=== PATIENT | female | born 1960 | race Caucasian/White ===

== ENCOUNTER → 2016-10-12 | Outpatient (CLI) | payer BC ==
[2016-10-12 08:15] LABS: Albumin 3.7 g/dL (3.4-5.0); Calcium 9.2 mg/dL (8.5-10.1); Potassium 4.1 mmol/L (3.5-5.1)
[2016-10-12 08:18] LABS: Bilirubin, Total 0.2 mg/dL (0.2-1.0); Total Protein 7.6 g/dL (6.4-8.2)
== END | disposition home or self-care (01) ==
LOC: LAB 07:24
DX: E11.65 Type 2 diabetes mellitus with hyperglycemia (principal); K76.0 Fatty (change of) liver, not elsewhere classified; Z90.49 Acquired absence of other specified parts of digestive tract
CPT/HCPCS: 36415; 80053; 80061; 83036

== ENCOUNTER 2018-09-20 03:21 | Inpatient (IN) | payer OTHER, BC | END 2018-09-23 14:18 | disposition home or self-care (01) | LOC: ER 03:21 → TELE 03:22 → TELE-EAST 10:24 | DX: I24.9 Acute ischemic heart disease, unspecified (principal); I10 Essential (primary) hypertension; E11.65 Type 2 diabetes mellitus with hyperglycemia; J45.909 Unspecified asthma, uncomplicated; E66.01 Morbid (severe) obesity due to excess calories ==

== ENCOUNTER 2021-08-18 05:44 | Inpatient (IN) | payer OTHER ==
[~2021-08-18] VITALS: Ht 170.2 cm; Wt 115.2 kg
[~2021-08-18 05:44] MED LIST: GLIP10TA9 PO; LINA5TAB PO; LOSA-39 PO; METF-372 PO; METO-289 PO
[2021-08-18 06:43] LABS: Basophils # (auto) 0.1 10 ^3/uL (0-0.2); Basophils % (auto) 1.3 % (0.0-2.0); Eosinophils # (auto) 0.3 10 ^3/uL (0-0.8); Eosinophils % (auto) 4.8 % (0.0-7.0); Hematocrit 40.4 % (36.0-46.0); Hemoglobin 14.1 g/dL (12.2-16.2); Lymphocytes # (auto) 2.1 10 ^3/uL (0.4-5.4); Lymphocytes % (auto) 33.8 % (10.0-50.0); Mean Corpuscular Hgb Conc. 34.8 g/dL (32.0-36.0); Mean Corpuscular Volume 86.3 fL (80.0-100.0); Monocytes # (auto) 0.5 10 ^3/uL (0-1.3); Monocytes % (auto) 7.9 % (0.0-12.0); Neutrophils # (auto) 3.3 10 ^3/uL (1.6-8.6); Neutrophils % (auto) 52.2 % (37.0-80.0); Nucleated Red Blood Cells % 0.1 %; Red Blood Cells 4.69 10^6/uL (4.0-5.20); Red Cell Distribution Width 13.3 % (11.8-14.3); White Blood Cell 6.3 10^3/uL (4.4-10.8)
[2021-08-18 07:04] LABS: Albumin 3.7 g/dL (3.4-5.0); Potassium 4.2 mmol/L (3.5-5.1)
[2021-08-18 07:07] LABS: BUN/Creatinine Ratio 11.9; Bilirubin, Total 0.4 mg/dL (0.2-1.0); Total Protein 7.5 g/dL (6.4-8.2)
[2021-08-18] MEDS ORDERED: LABETALOL HCL 5 MG/ML 4ML SYRINGE IV ONE (08:45)
[2021-08-18] MEDS ORDERED: MORPHINE SULFATE INJ 2 MG/ml SYRG IV PRN ×2 (11:00)
[2021-08-18] MEDS ORDERED: DEXTROSE (50%) 50ML SYRG IV PRN (11:00)
[2021-08-18] MEDS ORDERED: NITROGLYCERIN 0.4 MG SL TAB SL PRN (11:00)
[2021-08-18] MEDS ORDERED: hydrALAZINE HCL 20 MG/ML VL IV ONE (11:00)
[2021-08-18] MEDS ORDERED: ACETAMINOPHEN 325 MG TAB PO ONE (11:00)
[2021-08-18 11:16] LABS: Cholesterol 250 mg/dL (< 200); HDL Cholesterol 36 mg/dL (40-59); LDL Cholesterol 168 mg/dL (< 100); Triglycerides 311 mg/dL (< 150)
[2021-08-18] MEDS: hydrALAZINE HCL 20 MG/ML VL IV PRN ×3 (11:39→20:11)
[2021-08-18 12:07] LABS: Urine Bacteria NONE SEEN /hpf (None Seen); Urine Blood Negative /uL (Negative); Urine Specific Gravity 1.016 (1.001-1.035); Urine WBC 1 /hpf (0 - 5)
[2021-08-18 12:23] LABS: Alcohol, Urine < 3.0 mg/dL (0-10); Amphetamine Screen, Urine NEGATIVE (NEGATIVE); Barbiturate Scree,Urine NEGATIVE (NEGATIVE); Benzodiazephine Screen, Urine NEGATIVE (NEGATIVE); Cannabinoid Screen, Urine NEGATIVE (NEGATIVE); Cocaine Screen, Urine NEGATIVE (NEGATIVE); Opiate Scree,Urine NEGATIVE (NEGATIVE); Phencyclidine Screen, Urine NEGATIVE (NEGATIVE)
[2021-08-18] MEDS: ACCU-CHEK COMFORT CURVE STRIP VI SCH ×2 (12:28→17:33)
[2021-08-18] MEDS: InsuLIN REG 1unit/0.01ml Soln (100units/ml) SC SCH ×2 (12:40→17:48)
[2021-08-18 18:39] VITALS: BP 174/92
[2021-08-18] MEDS ORDERED: MONT-8 PO (19:21)
[2021-08-18] MEDS ORDERED: SITA100T7 PO (19:21)
[2021-08-18] MEDS ORDERED: CYCL-611 PO (19:21)
[2021-08-18] MEDS ORDERED: HYDR-4798 (19:21)
[2021-08-18] MEDS ORDERED: DULA0.5I SC (19:21)
[2021-08-18] MEDS: ATORVASTATIN 20 MG TAB PO SCH (23:59)
[2021-08-19] MEDS: InsuLIN REG 1unit/0.01ml Soln (100units/ml) SC SCH ×5 (00:04→21:33)
[2021-08-19] MEDS: ACCU-CHEK COMFORT CURVE STRIP VI SCH ×5 (00:05→21:38)
[2021-08-19] MEDS: ACETAMINOPHEN 325 MG TAB PO PRN ×2 (03:43→09:32)
[2021-08-19] MEDS: hydrALAZINE HCL 20 MG/ML VL IV PRN ×2 (04:12→09:37)
[2021-08-19 04:39] LABS: Basophils # (auto) 0.1 10 ^3/uL (0-0.2); Basophils % (auto) 1.5 % (0.0-2.0); Eosinophils # (auto) 0.3 10 ^3/uL (0-0.8); Eosinophils % (auto) 4.5 % (0.0-7.0); Hemoglobin 13.7 g/dL (12.2-16.2); Lymphocytes # (auto) 2.6 10 ^3/uL (0.4-5.4); Lymphocytes % (auto) 40.3 % (10.0-50.0); Mean Corpuscular Hemoglobin 29.5 pg (28.0-32.0); Mean Corpuscular Hgb Conc. 34.2 g/dL (32.0-36.0); Mean Corpuscular Volume 86.2 fL (80.0-100.0); Monocytes # (auto) 0.6 10 ^3/uL (0-1.3); Monocytes % (auto) 9.3 % (0.0-12.0); Neutrophils # (auto) 2.8 10 ^3/uL (1.6-8.6); Neutrophils % (auto) 44.4 % (37.0-80.0); Nucleated Red Blood Cells % 0.1 %; Red Blood Cells 4.64 10^6/uL (4.0-5.20); Red Cell Distribution Width 13.4 % (11.8-14.3); White Blood Cell 6.4 10^3/uL (4.4-10.8)
[2021-08-19 05:00] VITALS: BP 155/76
[2021-08-19 05:15] LABS: Albumin 3.5 g/dL (3.4-5.0); Calcium 9.2 mg/dL (8.5-10.1); Potassium 3.4 mmol/L (3.5-5.1)
[2021-08-19 05:19] LABS: BUN/Creatinine Ratio 14.7; Bilirubin, Total 0.3 mg/dL (0.2-1.0); Total Protein 6.9 g/dL (6.4-8.2)
[2021-08-19] MEDS: ASPirin 81 mg TAB PO SCH (09:28)
[2021-08-19] MEDS: METOPROLOL SUCCINATE XL 50 MG TAB PO SCH ×3 (09:31→21:38)
[2021-08-19] MEDS ORDERED: PATIENTS OWN MEDICATION (Losartan Potassium 1 TAB) PO SCH (10:00)
[2021-08-19] MEDS ORDERED: PANTOPRAZOLE 40 MG/10 ML VIAL INJ IV ONE (12:00)
[2021-08-19] MEDS ORDERED: cloNIDine HCL 0.1 MG TAB PO PRN (12:00)
[2021-08-19] MEDS ORDERED: MORPHINE SULFATE 4 MG/ML SYR/VIAL IV PRN (12:00)
[2021-08-19] MEDS: ONDANSETRON HCL 4 MG/2 ML VIAL IV PRN ×2 (12:27→17:09)
[2021-08-19] MEDS: HYDROcodone-ACET 10/325MG TAB PO PRN ×2 (12:29→18:26)
[2021-08-19] MEDS ORDERED: LOSARTAN POTASSIUM 50 MG TAB PO ONE (12:30)
[2021-08-19 13:00] VITALS: BP 194/94
[2021-08-19 13:30] VITALS: BP 142/80
[2021-08-19 15:10] VITALS: BP 191/94
[2021-08-19] MEDS ORDERED: ISOSORBIDE MONONITRATE ER 60 MG TAB PO ONE (16:45)
[2021-08-19] MEDS ORDERED: hydrALAZINE HCL 20 MG/ML VL IV PRN (16:45)
[2021-08-19] MEDS ORDERED: hydrALAZINE HCL 20 MG/ML VL IV ONE (16:45)
[2021-08-19] MEDS ORDERED: amLODIPine BESYLATE 5 MG TAB PO ONE (16:45)
[2021-08-19] MEDS ORDERED: POTASSIUM CHL 20 Meq TABLET PO ONE (16:45)
[2021-08-19 17:00] VITALS: BP 117/67
[2021-08-19] MEDS: SODIUM CHLORIDE 0.9% 1,000 ML IV SCH (17:47)
[2021-08-19] MEDS: SUCRALFATE 1 GM TAB PO SCH (20:02)
[2021-08-19] MEDS: ATORVASTATIN 20 MG TAB PO SCH (21:37)
[2021-08-19 23:13] VITALS: BP 106/55
[2021-08-20] MEDS: ONDANSETRON HCL 4 MG/2 ML VIAL IV PRN (02:17)
[2021-08-20] MEDS: HYDROcodone-ACET 10/325MG TAB PO PRN ×3 (02:17→18:03)
[2021-08-20 04:48] VITALS: BP 122/76
[2021-08-20] MEDS: SODIUM CHLORIDE 0.9% 1,000 ML IV SCH (05:55)
[2021-08-20] MEDS: SUCRALFATE 1 GM TAB PO SCH ×4 (05:55→20:53)
[2021-08-20] MEDS: ACCU-CHEK COMFORT CURVE STRIP VI SCH ×4 (06:09→22:49)
[2021-08-20] MEDS: InsuLIN REG 1unit/0.01ml Soln (100units/ml) SC SCH ×4 (06:09→22:51)
[2021-08-20] MEDS ORDERED: ADENOSINE 98 MG in GIVE UN-DILUTED 0 ML IV ONE (07:30)
[2021-08-20 09:25] VITALS: BP 112/77
[2021-08-20 11:04] VITALS: BP 152/81
[2021-08-20] MEDS: PANTOPRAZOLE 40 MG/10 ML VIAL INJ IV SCH (11:07)
[2021-08-20] MEDS: ASPirin 81 mg TAB PO SCH (11:07)
[2021-08-20] MEDS: LOSARTAN POTASSIUM 50 MG TAB PO SCH (11:08)
[2021-08-20] MEDS: METOPROLOL SUCCINATE XL 50 MG TAB PO SCH ×2 (11:09→22:48)
[2021-08-20] MEDS: amLODIPine BESYLATE 5 MG TAB PO SCH (11:20)
[2021-08-20] MEDS: ISOSORBIDE MONONITRATE ER 60 MG TAB PO SCH (11:20)
[2021-08-20] MEDS ORDERED: fentaNYL CITRATE 100 MCG/2 ML VL ONE (12:35)
[2021-08-20] MEDS ORDERED: diphenhdrAMINE HCL 50 MG/1 ML VL ONE (12:35)
[2021-08-20] MEDS ORDERED: SODIUM CHLORIDE LOCK 10 ML ONE (12:35)
[2021-08-20] MEDS ORDERED: MIDAZOLAM HCL 5 MG/ML-1ML VIAL ONE (12:35)
[2021-08-20] MEDS ORDERED: LIDOCAINE VISCOUS 2% 15ML UD ONE (12:35)
[2021-08-20 13:00] VITALS: BP 143/76
[2021-08-20 17:00] VITALS: BP 101/60
[2021-08-20] MEDS: DOCUSATE SOD 100 MG CAP PO PRN (18:02)
[2021-08-20] MEDS: ACETAMINOPHEN 325 MG TAB PO PRN (21:00)
[2021-08-20 22:00] VITALS: BP 113/59
[2021-08-20] MEDS: ATORVASTATIN 20 MG TAB PO SCH (22:48)
[2021-08-21] MEDS: HYDROcodone-ACET 10/325MG TAB PO PRN ×3 (03:12→17:34)
[2021-08-21 05:00] VITALS: BP 136/80
[2021-08-21] MEDS: SUCRALFATE 1 GM TAB PO SCH ×4 (06:34→21:55)
[2021-08-21] MEDS: ACCU-CHEK COMFORT CURVE STRIP VI SCH ×4 (06:34→21:56)
[2021-08-21] MEDS: InsuLIN REG 1unit/0.01ml Soln (100units/ml) SC SCH ×4 (06:35→21:53)
[2021-08-21] MEDS: LOSARTAN POTASSIUM 50 MG TAB PO SCH (08:55)
[2021-08-21] MEDS: ISOSORBIDE MONONITRATE ER 60 MG TAB PO SCH (08:56)
[2021-08-21] MEDS: METOPROLOL SUCCINATE XL 50 MG TAB PO SCH ×2 (08:56→21:56)
[2021-08-21] MEDS: amLODIPine BESYLATE 5 MG TAB PO SCH (08:56)
[2021-08-21] MEDS: ASPirin 81 mg TAB PO SCH (08:57)
[2021-08-21 09:00] VITALS: BP 160/83
[2021-08-21 10:41] LABS: INR 1.06 (0.9-1.15); Partial Thromboplastin Time 26.2 sec (23.6-33.0)
[2021-08-21] MEDS: PANTOPRAZOLE 40 MG/10 ML VIAL INJ IV SCH (12:02)
[2021-08-21] MEDS: LORazepam 0.5 MG TAB PO SCH ×2 (12:02→21:55)
[2021-08-21 13:00] VITALS: BP 115/46
[2021-08-21 17:00] VITALS: BP 109/68
[2021-08-21] MEDS: DOCUSATE SOD 100 MG CAP PO PRN (17:37)
[2021-08-21] MEDS: ATORVASTATIN 20 MG TAB PO SCH (21:55)
[2021-08-21 22:00] VITALS: BP 122/77
[2021-08-22] VITALS (8 sets, daily range): BP systolic 114–148; BP diastolic 70–94
[2021-08-22] MEDS: LORazepam 0.5 MG TAB PO SCH ×3 (05:47→22:09)
[2021-08-22 05:56] LABS: Basophils # (auto) 0.1 10 ^3/uL (0-0.2); Basophils % (auto) 1.2 % (0.0-2.0); Eosinophils # (auto) 0.3 10 ^3/uL (0-0.8); Eosinophils % (auto) 4.4 % (0.0-7.0); Hematocrit 39.9 % (36.0-46.0); Hemoglobin 13.2 g/dL (12.2-16.2); Lymphocytes # (auto) 1.9 10 ^3/uL (0.4-5.4); Lymphocytes % (auto) 27.5 % (10.0-50.0); Mean Corpuscular Hgb Conc. 33.2 g/dL (32.0-36.0); Mean Corpuscular Volume 87.4 fL (80.0-100.0); Monocytes # (auto) 0.6 10 ^3/uL (0-1.3); Monocytes % (auto) 8.7 % (0.0-12.0); Neutrophils % (auto) 58.2 % (37.0-80.0); Nucleated Red Blood Cells % 0.1 %; Red Blood Cells 4.57 10^6/uL (4.0-5.20); Red Cell Distribution Width 13.6 % (11.8-14.3); White Blood Cell 6.9 10^3/uL (4.4-10.8)
[2021-08-22 06:16] LABS: Calcium 8.7 mg/dL (8.5-10.1); Potassium 3.8 mmol/L (3.5-5.1)
[2021-08-22] MEDS: InsuLIN REG 1unit/0.01ml Soln (100units/ml) SC SCH ×5 (06:16→22:00)
[2021-08-22] MEDS: SUCRALFATE 1 GM TAB PO SCH ×4 (06:17→22:08)
[2021-08-22] MEDS: ACCU-CHEK COMFORT CURVE STRIP VI SCH ×4 (06:17→22:10)
[2021-08-22 06:20] LABS: BUN/Creatinine Ratio 23.7
[2021-08-22] MEDS: ASPirin 81 mg TAB PO SCH (09:07)
[2021-08-22] MEDS: LOSARTAN POTASSIUM 50 MG TAB PO SCH (09:07)
[2021-08-22] MEDS: METOPROLOL SUCCINATE XL 50 MG TAB PO SCH ×2 (09:08→22:09)
[2021-08-22] MEDS: ISOSORBIDE MONONITRATE ER 60 MG TAB PO SCH (09:08)
[2021-08-22] MEDS: HYDROcodone-ACET 10/325MG TAB PO PRN ×2 (09:09→18:14)
[2021-08-22] MEDS: amLODIPine BESYLATE 5 MG TAB PO SCH (09:09)
[2021-08-22] MEDS: PANTOPRAZOLE 40 MG/10 ML VIAL INJ IV SCH (09:10)
[2021-08-22] MEDS: DOCUSATE SOD 100 MG CAP PO PRN (09:20)
[2021-08-22] MEDS: ACETAMINOPHEN 325 MG TAB PO PRN (13:29)
[2021-08-22] MEDS ORDERED: MIDAZOLAM HCL 2MG/2ML 2ml VIAL (1mg/ml) ONE (15:51)
[2021-08-22] MEDS ORDERED: fentaNYL CITRATE 100 MCG/2 ML VL ONE (15:51)
[2021-08-22] MEDS ORDERED: ANGIOMAX 250 MG VIAL IV ONE (15:51)
[2021-08-22] MEDS ORDERED: IOHEXOL 350 MG/ML 100ML IJ ONE (15:51)
[2021-08-22] MEDS ORDERED: SODIUM CHL 0.9% 0 ML ONE (15:51)
[2021-08-22] MEDS ORDERED: methylPREDNISolone SOD SUCC 125 MG/2 ML VL ONE (15:52)
[2021-08-22] MEDS ORDERED: HEPARIN SODIUM (PORCINE) 5000 UNITS/ML 1ML VIAL ONE ×2 (15:52→16:06)
[2021-08-22] MEDS ORDERED: diphenhdrAMINE HCL 50 MG/1 ML VL ONE (15:52)
[2021-08-22] MEDS ORDERED: LIDOCAINE 2%HCL (LOCAL ANESTH.) INJ 10ml MDV ONE (15:53)
[2021-08-22] MEDS ORDERED: VERAPAMIL 2.5MG/ML INJ 2ML VIAL IV ONE (15:53)
[2021-08-22] MEDS ORDERED: FAMOTIDINE (10MG/ML) 2ML VL IV ONE (15:53)
[2021-08-22] MEDS: ATORVASTATIN 20 MG TAB PO SCH (22:09)
[2021-08-23 04:32] VITALS: BP_SYST 138; BP_SYST 153; BP_DIAS 78; BP_DIAS 81
[2021-08-23] MEDS: LORazepam 0.5 MG TAB PO SCH (06:00)
[2021-08-23] MEDS: SUCRALFATE 1 GM TAB PO SCH ×2 (06:36→11:56)
[2021-08-23] MEDS: ACCU-CHEK COMFORT CURVE STRIP VI SCH ×2 (06:37→11:55)
[2021-08-23] MEDS: InsuLIN REG 1unit/0.01ml Soln (100units/ml) SC SCH ×2 (06:40→11:55)
[2021-08-23] MEDS: HYDROcodone-ACET 10/325MG TAB PO PRN (06:45)
[2021-08-23] MEDS ORDERED: AMLO-496 PO (07:55)
[2021-08-23] MEDS ORDERED: ISOS1TAB28 PO (07:55)
[2021-08-23] MEDS ORDERED: ATO40T PO (07:55)
[2021-08-23] MEDS ORDERED: ASPI-463 PO (07:55)
[2021-08-23] MEDS ORDERED: PANT40T PO (07:55)
[2021-08-23] MEDS ORDERED: SUCR1TAB PO (07:55)
[2021-08-23] MEDS ORDERED: LOSA-39 PO (07:55)
[2021-08-23 09:37] VITALS: BP 158/54
[2021-08-23] MEDS: ISOSORBIDE MONONITRATE ER 60 MG TAB PO SCH (09:45)
[2021-08-23] MEDS: ASPirin 81 mg TAB PO SCH (09:45)
[2021-08-23] MEDS: LOSARTAN POTASSIUM 50 MG TAB PO SCH (09:45)
[2021-08-23] MEDS: PANTOPRAZOLE 40 MG/10 ML VIAL INJ IV SCH (09:46)
[2021-08-23] MEDS: amLODIPine BESYLATE 5 MG TAB PO SCH (09:46)
[2021-08-23] MEDS: METOPROLOL SUCCINATE XL 50 MG TAB PO SCH (09:46)
[2021-08-23 11:27] VITALS: BP 158/74
[2021-08-23 11:52] VITALS: BP 143/76
== END 2021-08-23 12:25 | disposition home or self-care (01) | DRG 287 ==
LOC: ER 05:44 → TELE 10:47 → TELE-WESTW 22:40 → TELE-EAST 08-19 07:48
PROVIDERS: ADMIT Registered Nurse; ATTEND Family Medicine
PROC: 5A09357 Assistance with Respiratory Ventilation, Less than 24 Consecutive Hours, Continuous Positive Airway Pressure (ICD-10-PCS; 2021-08-19)
PROC: 4A023N7 Measurement of Cardiac Sampling and Pressure, Left Heart, Percutaneous Approach (ICD-10-PCS; principal; 2021-08-22)
PROC: B2111ZZ Fluoroscopy of Multiple Coronary Arteries using Low Osmolar Contrast (ICD-10-PCS; 2021-08-22)
PROC: B2151ZZ Fluoroscopy of Left Heart using Low Osmolar Contrast (ICD-10-PCS; 2021-08-22)
DX: I25.119 Atherosclerotic heart disease of native coronary artery with unspecified angina pectoris (principal); I16.1 Hypertensive emergency; G45.9 Transient cerebral ischemic attack, unspecified; N18.2 Chronic kidney disease, stage 2 (mild); E11.65 Type 2 diabetes mellitus with hyperglycemia; G47.33 Obstructive sleep apnea (adult) (pediatric); R29.810 Facial weakness; M54.18 Radiculopathy, sacral and sacrococcygeal region; M54.16 Radiculopathy, lumbar region; J45.909 Unspecified asthma, uncomplicated; Z20.822 Contact with and (suspected) exposure to COVID-19; E66.01 Morbid (severe) obesity due to excess calories; G47.10 Hypersomnia, unspecified; G89.29 Other chronic pain; E87.6 Hypokalemia; E11.21 Type 2 diabetes mellitus with diabetic nephropathy; Z68.39 Body mass index [BMI] 39.0-39.9, adult; E11.40 Type 2 diabetes mellitus with diabetic neuropathy, unspecified; I13.10 Hypertensive heart and chronic kidney disease without heart failure, with stage 1 through stage 4 chronic kidney disease, or unspecified chronic kidney disease; Z79.84 Long term (current) use of oral hypoglycemic drugs; Z79.899 Other long term (current) drug therapy; Z86.16 Personal history of COVID-19; Z91.14 Patient's other noncompliance with medication regimen
CPT/HCPCS: 36415; 70450; 70545; 70551; 71045; 74176; 80048; 80053; 80061; 80307; 81001; 82962; 83036; 83880; 84443; 84484; 85025; 85379; 85610; 85730; 93005; 93017; 93306; 93458; 93886; 93971; 94660; 96372; 96374; 96375; 99152; 99291; C9113; G0378; J0153; J1815; J2001; J2250; J2405; J3490

== ENCOUNTER → 2021-11-28 | Outpatient (CLI) | payer OTHER ==
[~2021-11-28] MED LIST changes: +AMLO-496 PO; +ASPI-463 PO; +ATO40T PO; +CYCL-611 PO; +DULA0.5I SC; +HYDR-4798; +ISOS1TAB28 PO; +MONT-8 PO; +PANT40T PO; +SITA100T7 PO; +SUCR1TAB PO
[2021-11-28 08:42] LABS: Albumin 3.6 g/dL (3.4-5.0); Potassium 4.4 mmol/L (3.5-5.1)
[2021-11-28 08:51] LABS: BUN/Creatinine Ratio 16.4; Bilirubin, Total 0.6 mg/dL (0.2-1.0); Calcium 8.9 mg/dL (8.5-10.1); Total Protein 6.9 g/dL (6.4-8.2)
== END | disposition home or self-care (01) ==
LOC: LAB 07:02
DX: E78.2 Mixed hyperlipidemia (principal); E11.65 Type 2 diabetes mellitus with hyperglycemia
CPT/HCPCS: 36415; 80053; 80061; 83036

== ENCOUNTER 2022-02-27 10:00 | Day surgery (SDC) | payer OTHER ==
[2022-02-25 11:29] LABS: Basophils # (auto) 0.1 10 ^3/uL (0-0.2); Basophils % (auto) 1.3 % (0.0-2.0); Eosinophils # (auto) 0.4 10 ^3/uL (0-0.8); Eosinophils % (auto) 3.6 % (0.0-7.0); Hematocrit 40.5 % (36.0-46.0); Hemoglobin 13.8 g/dL (12.2-16.2); Lymphocytes # (auto) 2.8 10 ^3/uL (0.4-5.4); Lymphocytes % (auto) 27.8 % (10.0-50.0); Mean Corpuscular Hemoglobin 28.6 pg (28.0-32.0); Mean Corpuscular Hgb Conc. 34.1 g/dL (32.0-36.0); Mean Corpuscular Volume 83.9 fL (80.0-100.0); Monocytes # (auto) 0.8 10 ^3/uL (0-1.3); Monocytes % (auto) 7.6 % (0.0-12.0); Neutrophils # (auto) 5.9 10 ^3/uL (1.6-8.6); Neutrophils % (auto) 59.7 % (37.0-80.0); Red Blood Cells 4.83 10^6/uL (4.0-5.20); Red Cell Distribution Width 13.6 % (11.8-14.3)
[2022-02-25 11:56] LABS: Albumin 3.8 g/dL (3.4-5.0); Calcium 9.3 mg/dL (8.5-10.1); Potassium 4.2 mmol/L (3.5-5.1)
[2022-02-25 11:59] LABS: BUN/Creatinine Ratio 17.7; Bilirubin, Total 0.3 mg/dL (0.2-1.0); Total Protein 7.4 g/dL (6.4-8.2)
[2022-02-25 12:31] LABS: INR 0.97 (0.9-1.15); Partial Thromboplastin Time 26.7 sec (24.6-33.4)
[~2022-02-27 10:00] MED LIST changes: +BUDE1AER5 IN; -CYCL-611 PO; -DULA0.5I SC; +FLUT110A IN; -GLIP10TA9 PO; +INSU100I4 SC; -LINA5TAB PO; +METO-159 PO; -METO-289 PO; -PANT40T PO; -SUCR1TAB PO
[2022-02-27] MEDS ORDERED: LIDOCAINE VISCOUS 2% 15ML UD ONE (10:25)
[2022-02-27] MEDS: MIDAZOLAM HCL 2MG/2ML 2ml VIAL (1mg/ml) ONE ×3 (12:33→12:41)
[2022-02-27] MEDS: fentaNYL CITRATE 100 MCG/2 ML VL ONE ×3 (12:33→12:41)
[2022-02-27] MEDS: diphenhdrAMINE HCL 50 MG/1 ML VL ONE ×2 (12:33→12:36)
[2022-02-27 13:25] VITALS: BP 134/76
== END 2022-02-27 13:30 | disposition home or self-care (01) ==
LOC: GI 10:00
PROVIDERS: ATTEND Internal Medicine Gastroenterology
DX: R11.2 Nausea with vomiting, unspecified (principal); K44.9 Diaphragmatic hernia without obstruction or gangrene; K22.10 Ulcer of esophagus without bleeding; K26.9 Duodenal ulcer, unspecified as acute or chronic, without hemorrhage or perforation; K31.7 Polyp of stomach and duodenum; K29.50 Unspecified chronic gastritis without bleeding; Z98.84 Bariatric surgery status; Z20.822 Contact with and (suspected) exposure to COVID-19
CPT/HCPCS: 36415; 43239; 80053; 82962; 85025; 85610; 85730; J1200; J2250; J3010; J7030; U0003; 99152

== ENCOUNTER 2022-09-28 10:20 | Emergency (ER) | payer OTHER ==
[~2022-09-28] VITALS: Ht 170.2 cm; Wt 104.7 kg
[2022-09-28 10:20] VITALS: BP 153/91; RESP 19; TEMP 98.2; O2SAT 97
[~2022-09-28 10:20] MED LIST changes: -AMLO-496 PO; +AMLO1TAB23 PO; -LOSA-39 PO; +LOSA100T58 PO
[2022-09-28 10:54] LABS: Basophils # (auto) 0.1 10 ^3/uL (0-0.2); Basophils % (auto) 1.2 % (0.0-2.0); Eosinophils # (auto) 0.4 10 ^3/uL (0-0.8); Eosinophils % (auto) 4.3 % (0.0-7.0); Hematocrit 40.5 % (36.0-46.0); Hemoglobin 13.4 g/dL (12.2-16.2); Lymphocytes # (auto) 3.1 10 ^3/uL (0.4-5.4); Lymphocytes % (auto) 30.7 % (10.0-50.0); Mean Corpuscular Hemoglobin 28.5 pg (28.0-32.0); Mean Corpuscular Hgb Conc. 33.2 g/dL (32.0-36.0); Mean Corpuscular Volume 85.9 fL (80.0-100.0); Monocytes # (auto) 0.8 10 ^3/uL (0-1.3); Monocytes % (auto) 7.9 % (0.0-12.0); Neutrophils # (auto) 5.7 10 ^3/uL (1.6-8.6); Neutrophils % (auto) 55.9 % (37.0-80.0); Nucleated Red Blood Cells % 0.1 %; Red Blood Cells 4.71 10^6/uL (4.0-5.20); Red Cell Distribution Width 14.1 % (11.8-14.3); White Blood Cell 10.1 10^3/uL (4.4-10.8)
[2022-09-28 11:10] LABS: Albumin 3.8 g/dL (3.4-5.0); Calcium 8.8 mg/dL (8.5-10.1); Potassium 4.1 mmol/L (3.5-5.1)
[2022-09-28 11:13] LABS: Bilirubin, Total 0.4 mg/dL (0.2-1.0); Total Protein 6.7 g/dL (6.4-8.2)
[2022-09-28 11:17] VITALS: PULSE 82
== END 2022-09-28 12:29 | disposition home or self-care (01) ==
LOC: ER 10:20
DX: R07.89 Other chest pain (principal); J45.909 Unspecified asthma, uncomplicated; E11.9 Type 2 diabetes mellitus without complications; E78.5 Hyperlipidemia, unspecified; I10 Essential (primary) hypertension; Z90.49 Acquired absence of other specified parts of digestive tract; Z98.51 Tubal ligation status; Z87.442 Personal history of urinary calculi; Z91.041 Radiographic dye allergy status
CPT/HCPCS: 36415; 71045; 80053; 82962; 83880; 84484; 85025; 85379; 93005

== ENCOUNTER → 2023-02-01 | Outpatient (CLI) | payer OTHER | END | disposition home or self-care (01) | LOC: XYW 09:44 | PROVIDERS: ATTEND Student in an Organized Health Care Education/Training Program | DX: I34.0 Nonrheumatic mitral (valve) insufficiency (principal); R07.9 Chest pain, unspecified | CPT/HCPCS: 93306 ==

== ENCOUNTER → 2023-04-15 | Outpatient (CLI) | payer OTHER ==
[~2023-04-15] VITALS: Ht 170.2 cm; Wt 104.3 kg
[2023-04-15] MEDS: ADENOSINE 88 MG in GIVE UN-DILUTED 0 ML IV ONE (10:25)
== END | disposition home or self-care (01) ==
LOC: XYW 09:01
PROVIDERS: ATTEND Student in an Organized Health Care Education/Training Program
DX: R07.9 Chest pain, unspecified (principal); I10 Essential (primary) hypertension; E11.65 Type 2 diabetes mellitus with hyperglycemia; E78.5 Hyperlipidemia, unspecified; M79.604 Pain in right leg; M79.605 Pain in left leg
CPT/HCPCS: 78452; 93017; A9500; J0153